=== PATIENT | female | born 1990 | race Hispanic/Latino ===

== ENCOUNTER 2019-02-07 12:58 | Emergency (ER) | payer OTHER ==
--- NOTE | 2019-02-07 15:53 | EDPHYS ---
Physician Documentation [facility] Name: Nuzhat Gonzalez Age: 28 yrs Sex: Female : 1990 Arrival Date: 02/07/2019 Time: 13:00 Bed 19 Private MD: ED Physician Neville Nguyen HPI: 02/07 15:57 This 28 yrs old Female presents to ER via Ambulatory with complaints of Fever, kb Sore Throat, Congestion. 15:57 The patient or guardian reports cough, flu symptoms, arthralgias, low-grade fever, kb myalgias. Onset: The symptoms/episode began/occurred 3 day(s) ago. Severity of symptoms: At their worst the symptoms were moderate, in the emergency department the symptoms are unchanged. Modifying factors: The symptoms are alleviated by nothing, the symptoms are aggravated by nothing. Associated signs and symptoms: Pertinent positives: fever, sore throat, Pertinent negatives: chest pain, diarrhea, ear ache, nausea, rhinorrhea, vomiting. The patient has not experienced similar symptoms in the past. The patient has not recently seen a physician. 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 - Social history:: Smoking status: Patient/guardian denies using tobacco. - Ebola Screening: : Patient negative for fever greater than or equal to 101.5 degrees Fahrenheit, and additional compatible Ebola Virus Disease symptoms Patient denies exposure to infectious person Patient denies travel to an Ebola-affected area in the 21 days before illness onset No symptoms or risks identified at this time. ROS: 15:54 Cardiovascular: Negative for chest pain, palpitations, and edema, Abdomen/GI: Negative kb for abdominal pain, nausea, vomiting, diarrhea, and constipation, MS/Extremity: Negative for injury and deformity, Skin: Negative for injury, rash, and discoloration. 15:54 Constitutional: Positive for body aches, chills, fatigue, fever, malaise, poor PO intake, Negative for weight loss. 15:54 ENT: Positive for sore throat. 15:54 Respiratory: Positive for cough, Negative for dyspnea on exertion, hemoptysis, orthopnea, pleurisy, shortness of breath, sputum production, wheezing. 15:54 Neuro: Positive for headache. Exam: 15:54 Constitutional: This is a well developed, well nourished patient who is awake, alert, kb and in no acute distress. Head/Face: Normocephalic, atraumatic. ENT: Nares patent. No nasal discharge, no septal abnormalities noted. Tympanic membranes are normal and external auditory canals are clear. Oropharynx with no redness, swelling, or masses, exudates, or evidence of obstruction, uvula midline. Mucous membranes moist. Neck: Trachea midline, no thyromegaly or masses palpated, and no cervical lymphadenopathy. Supple, full range of motion without nuchal rigidity, or vertebral point tenderness. No Meningismus. Chest/axilla: Normal chest wall appearance and motion. Nontender with no deformity. No lesions are appreciated. Cardiovascular: Regular rate and rhythm with a normal S1 and S2. No gallops, murmurs, or rubs. Normal PMI, no JVD. No pulse deficits. Respiratory: Lungs have equal breath sounds bilaterally, clear to auscultation and percussion. No rales, rhonchi or wheezes noted. No increased work of breathing, no retractions or nasal flaring. Abdomen/GI: Soft, non-tender, with normal bowel sounds. No distension or tympany. No guarding or rebound. No evidence of tenderness throughout. Skin: Warm, dry with normal turgor. Normal color with no rashes, no lesions, and no evidence of cellulitis. MS/ Extremity: Pulses equal, no cyanosis. Neurovascular intact. Full, normal range of motion. Neuro: Awake and alert, GCS 15, oriented to person, place, time, and situation. Cranial nerves II-XII grossly intact. Motor strength 5/5 in all extremities. Sensory grossly intact. Cerebellar exam normal. Normal gait. Vital Signs: 14:15 BP 105 / 75; Pulse 117; Resp 19; Temp 98.8; Pulse Ox 100% on R/A; Weight 59.87 kg (R); sg Height 5 ft. 7 in. (170.18 cm) (R); Pain 8/10; 14:15 Body Mass Index 20.67 (59.87 kg, 170.18 cm) MDM: 15:38 Patient medically screened. kb 15:52 Data reviewed: vital signs, nurses notes. Data interpreted: Pulse oximetry: on room air kb is 100 %. Interpretation: normal. Counseling: I had a detailed discussion with the patient and/or guardian regarding: the historical points, exam findings, and any diagnostic results supporting the discharge/admit diagnosis, lab results, the need for outpatient follow up, a family practitioner, to return to the emergency department if symptoms worsen or persist or if there are any questions or concerns that arise at home. 02/07 14:16 Order name: Flu; Complete Time: 14:59 sg Administered Medications: No medications were administered Disposition: 02/08 07:44 Co-signature as Attending Physician, Neville Nguyen MD I agree with the assessment and stephanie plan of care. Disposition: 02/07/19 15:52 Discharged to Home. Impression: Influenza due to certain identified influenza viruses. - Condition is Stable. - Discharge Instructions: Influenza, Adult, [id number]. - Medication Reconciliation Form, Thank You Letter, Antibiotic Education, Prescription Opioid Use form. - Follow up: Emergency Department; When: As needed; Reason: Worsening of condition. Follow up: Private Physician; When: 2 - 3 days; Reason: Recheck today's complaints, Continuance of care, Re-evaluation by your physician. Signatures: Dispatcher [employer] Halle Bowling, LIQUOR RUNNER-C LIQUOR RUNNER-Ckb Zach Manzanares, Neville Castro RN, MD MD cha Baxter, Heather, RN RN Corrections: (The following items were deleted from the chart) 02/07 16:05 15:52 02/07/2019 15:52 Discharged to Home. Impression: Influenza due to certain hb identified influenza viruses. Condition is Stable. Forms are Medication Reconciliation Form, Thank You Letter, Antibiotic Education, Prescription Opioid Use. Follow up: Emergency Department; When: As needed; Reason: Worsening of condition. Follow up: Private Physician; When: 2 - 3 days; Reason: Recheck today's complaints, Continuance of care, Re-evaluation by your physician. kb
--- NOTE | 2019-02-07 15:53 | ER ---
Nurse's Notes [facility] Name: Nuzhat Gonzalez Age: 28 yrs Sex: Female : 1990 Arrival Date: 02/07/2019 Time: 13:00 Bed 19 Private MD: Diagnosis: Influenza due to certain identified influenza viruses Presentation: 02/07 14:14 Presenting complaint: Patient states: Fever, bodyaches, sore throat, for several days, sg reports fever TMAX 104 at home, Nausea and dizziness with sore throat as wel. Presenting complaint:. Transition of care: patient was not received from another setting of care. Onset of symptoms was February 02, 2019. Risk Assessment: Do you want to hurt yourself or someone else? Patient reports no desire to harm self or others. Initial Sepsis Screen: Does the patient meet any 2 criteria? HR > 90 bpm. Yes Does the patient have a suspected source of infection? No. Patient's initial sepsis screen is negative. Care prior to arrival: None. 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 - Social history:: Smoking status: Patient/guardian denies using tobacco. - Ebola Screening: : Patient negative for fever greater than or equal to 101.5 degrees Fahrenheit, and additional compatible Ebola Virus Disease symptoms Patient denies exposure to infectious person Patient denies travel to an Ebola-affected area in the 21 days before illness onset No symptoms or risks identified at this time. Screenin:44 Abuse screen: Denies threats or abuse. Denies injuries from another. Nutritional hb screening: No deficits noted. Tuberculosis screening: No symptoms or risk factors identified. Fall Risk None identified. Vital Signs: 14:15 BP 105 / 75; Pulse 117; Resp 19; Temp 98.8; Pulse Ox 100% on R/A; Weight 59.87 kg (R); sg Height 5 ft. 7 in. (170.18 cm) (R); Pain 8/10; 14:15 Body Mass Index 20.67 (59.87 kg, 170.18 cm) sg ED Course: 13:00 Patient arrived in ED. as 13:43 Arm band placed on. sg 14:15 Triage completed. sg 14:59 Halle oCnrad [facility]C [facility]. kb 14:59 Neville Nguyen MD is Attending Physician. kb 15:40 Kathy Blakely, RN is Primary Nurse. hb Administered Medications: No medications were administered Outcome: 15:52 Discharge ordered by . kb 16:05 Patient left the ED. hb Signatures: Halle Conrad FNP-C FNP-Ckb Gay, Steven, RN RN Renetta Jesus as Kathy Blakely, RN RN hb Corrections: (The following items were deleted from the chart) 13:48 13:43 BP 162 / 92; Pulse 77bpm; Resp 19bpm; Pulse Ox 100%; Temp 98.3F; 104.33 kg; sg Height 5 ft. 5 in.; BMI: 38.2; Pain 9/10; sg 13:48 13:43 LMP N/A - Hysterectomy sg sg
== END 2019-02-07 16:05 | disposition home or self-care (01) ==
LOC: ER 12:58
DX: J10.1 Influenza due to other identified influenza virus with other respiratory manifestations (principal)
CPT/HCPCS: 87804; 99281